=== PATIENT | female | born 1995 | race Two or more races ===

== ENCOUNTER 2022-03-08 15:45 | Outpatient (CLI) | payer OTHER | END 2022-03-08 16:57 | disposition home or self-care (01) | LOC: PRENATAL 15:45 | PROVIDERS: ATTEND Obstetrics & Gynecology Maternal & Fetal Medicine | DX: O35.0XX0 Maternal care for (suspected) central nervous system malformation in fetus, not applicable or unspecified (principal); O35.3XX0 Maternal care for (suspected) damage to fetus from viral disease in mother, not applicable or unspecified; Z3A.23 23 weeks gestation of pregnancy ==

== ENCOUNTER 2022-06-23 08:33 | Inpatient (IN) | payer OTHER ==
[~2022-06-23] VITALS: Ht 149.9 cm; Wt 84.4 kg
[2022-06-23] MEDS ORDERED: PRENATAL TABLE1 EAC1 PO (08:45)
== END 2022-06-25 12:52 | disposition home or self-care (01) | DRG 807 ==
LOC: LDR 08:33 → OB/GYN 08:33
PROVIDERS: ADMIT Obstetrics & Gynecology; ATTEND Obstetrics & Gynecology
PROC: 10E0XZZ Delivery of Products of Conception, External Approach (ICD-10-PCS; principal; 2022-06-23)
PROC: 4A1HXCZ Monitoring of Products of Conception, Cardiac Rate, External Approach (ICD-10-PCS; 2022-06-23)
DX: O80 Encounter for full-term uncomplicated delivery (principal); Z37.0 Single live birth; Z3A.38 38 weeks gestation of pregnancy; Z20.822 Contact with and (suspected) exposure to COVID-19